=== PATIENT | female | born 1940 | race Caucasian/White ===

== ENCOUNTER 2017-07-02 10:46 | Emergency (ER) | payer OTHER, MEDICARE ==
[~2017-07-02] VITALS: Ht 157.5 cm; Wt 83.9 kg
[~2017-07-02 10:46] MED LIST: ARICEPT10 M1 PO; ARMOUR THYROID90 M1 PO; BELSOMRA10 MG PO; CALCIUM CARBON500 M2 PO; CITALOPRAM HBR20 MG PO; COLACE100 M1 PO; CYANOCOBAL1000 MCG/2 IM; GABAPENTIN300 M2 PO; JANTOVEN3 MG PO; LIPITOR20 M2 PO; LOVENOX80 MG/0.1 SC; METFORMIN HCL500 M3 PO; MORPHINE SULFAT30 M3 PO; OMEPRAZOLE20 M2 PO; RAMIPRIL2.5 M1 PO; VALIUM10 M1 PO; VITAMIN D32000 UNI1 PO; ZETIA10 M1 PO
--- NOTE | 2017-07-02 12:22 | ED UPPER/LOWER EXTREMITY COMPL ---
History of Present Illness General Chief Complaint: Lower Extremity Problems Stated Complaint: LFT LEG SWELLING Source: patient, old records Exam Limitations: no limitations Vital Signs & Intake/Output Vital Signs & Intake/Output Vital Signs Date Time Temp Pulse Resp B/P B/P Pulse O2 O2 Flow FiO2 Mean Ox Delivery Rate 07/02 1322 97.9 70 18 116/64 93 Room Air 07/02 1059 98.5 75 20 104/64 94 Room Air Allergies Coded Allergies: NO KNOWN ALLERGIES (01/24/16) Reconcile Medications Atorvastatin Calcium (Lipitor) 20 MG TABLET 1 TAB PO DAILY CHOLESTEROL ( Reported) Calcium Carbonate 500 MG CALCIUM (1,250 MG) TABLET 1 TAB PO BID SUPPLEMENT ( Reported) Cholecalciferol (Vitamin D3) (Vitamin D3) 2,000 UNIT TABLET 1 TAB PO DAILY SUPPLEMENT (Reported) Citalopram Hydrobromide (Citalopram HBr) 20 MG TABLET 1 TAB PO DAILY ANXIETY (Reported) Cyanocobalamin (Vitamin B-12) (Cyanocobalamin Injection) 1,000 MCG/ML VIAL 1 ML IM Q30D SUPPLEMENT (Reported) Diazepam (Valium) 10 MG TABLET 1 TAB PO QPM ANXIETY (Reported) Docusate Sodium (Colace) 100 MG CAPSULE 1 CAP PO DAILY STOOL SOFTENER ( Reported) Donepezil HCl (Aricept) 10 MG TABLET 1 TAB PO QPM MEMORY (Reported) Enoxaparin Sodium (Lovenox) 80 MG/0.8 ML SYRINGE 80 MG SC BID BLOOD CLOTS ( Reported) Ezetimibe (Zetia) 10 MG TABLET 1 TAB PO DAILY CHOLESTEROL (Reported) Gabapentin 300 MG CAPSULE 1 CAP PO QPM NEUROPATHY (Reported) Metformin HCl 500 MG TABLET 1 TAB PO BID DM (Reported) Morphine Sulfate (Morphine Sulfate ER) 30 MG TABLET.ER 1 TAB PO DAILY PAIN ( Reported) Omeprazole 20 MG CAPSULE.DR 1 CAP PO DAILY REFLUX (Reported) Ramipril 2.5 MG CAPSULE 1 CAP PO DAILY BP (Reported) Suvorexant (Belsomra) 10 MG TABLET 1 TAB PO QPM SLEEP (Reported) Thyroid,Pork ([place] Thyroid) 90 MG TABLET 1 TAB PO DAILY THYROID (Reported) Triage Note: STATES ON EASTER SHE WORE KNEE HIGH STOCKINGS AND WHEN SHE TOOK THEM OFF HER LEFT LEG AND ANKLE WAS VERY SWOLLEN. STATES THE SWELLING HASN'T GONE DOWN DESPITE ELEVATION. DR DUARTE SENT HER IN FOR U/S D/T HX OF CLOTS Triage Nurses Notes Reviewed? 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 Patient denies any fever chills chest pain shortness of breath DYSPNEA ON EXERTION, calf pain hemoptysis and is otherwise without complaints. Patient was advised to present to emergency room by primary care doctor for evaluation of left lower extremity DVT (Sky Rodríguez) Past History Travel History Traveled to [place] past 21 day No Medical History Any Pertinent Medical History? see below for history Cardiovascular: hyperlipidemia Respiratory: pulmonary embolism Gastrointestinal: GERD Endocrine: diabetes, hypothyroidism Surgical History Surgical History: non-contributory Psychosocial History Who do you live with Patient/Self Services at Home Nursing What is your primary language Surinamese Tobacco Use: Never used ETOH Use: denies use Illicit Drug Use: denies illicit drug use Family History Hx Contributory? No (Sky Rodríguez) Review of Systems Review of Systems Constitutional: Reports: no symptoms. EENTM: Reports: no symptoms. Respiratory: Reports: no symptoms. Cardiovascular: Reports: see HPI, peripheral edema. Denies: chest pain. Gastrointestinal/Abdominal: Reports: no symptoms. Genitourinary: Reports: no symptoms. Musculoskeletal: Reports: no symptoms. Skin: Reports: no symptoms. Neurological/Psychological: Reports: no symptoms. Hematologic/Endocrine: Reports: no symptoms. Immunological: Reports: no symptoms. All Other Systems: Reviewed and Negative (Sky Rodríguez) Physical Exam Physical Exam General Appearance: no apparent distress, alert, comfortable, obese Head: atraumatic Eyes: Bilateral: normal appearance. Ears, Nose, Throat: hearing grossly normal Neck: normal inspection Cardiovascular/Respiratory: normal breath sounds, normal peripheral pulses, regular rate/rhythm Peripheral Pulses: 2+ dorsalis pedis (L) Neurologic/Tendon: normal sensation, normal motor functions, normal tendon functions, responds to pain, no evidence tendon injury, no pulse deficit Skin: intact, normal color, warm/dry Diagram Legs Front/Back 1) Mild nonpitting edema to left lower extremity below the knee pedal pulses + 2 dermatomes intact no signs of erythema (Sky Rodríguez) Progress Differential Diagnosis: arterial insufficiency, cellulitis, CHF, compartment syndrome, contusion, dislocation, DVT, fracture, septic arthritis, sprain, tendon injury Plan of Care: Orders Procedure Date/time Status US-UNILATERAL VENOUS DOPPLER 07/02 1128 Active Ultrasound was negative for concerns of DVT to left lower extremity, patient denies any cardiovascular or respiratory complaints no concerns at this time of PE. MELE WRAP was placed to left lower extremity pre-and post-neurovascular was intact Discussed results with patient was aware and has no questions upon discharge Diagnostic Imaging: Viewed by Me: Ultrasound. Radiology Impression: no acute abnormality Comments: PATIENT: JOANNA MCNAMARA PRESENT AGE: 76 PATIENT ACCOUNT NO: [id number] : 38 LOCATION: [facility] ORDERING PHYSICIAN: Sky CHAN SERVICE DATE: 07/02/17-1128 EXAM TYPE: US - US-UNILATERAL VENOUS DOPPLER EXAMINATION: US TRIPLEX LOWER EXTREMITY, LEFT CLINICAL INFORMATION: Left leg swelling and pain COMPARISON: None available TECHNIQUE: Color-flow triplex imaging with spectral analysis and compression Doppler were performed on the left lower extremity. FINDINGS: Respiratory variation, normal compression and augmented flow are noted throughout the left lower extremity. The visualized common femoral vein, superficial femoral vein, profunda femoral vein, and popliteal vein show no evidence of deep venous thrombosis. The left calf veins are not well assessed secondary to soft tissue edema within the calf. There is no Tran's cyst. IMPRESSION: There is no evidence of deep venous thrombosis involving the left lower extremity. The left calf veins are not well assessed secondary to soft tissue edema within the calf. DICTATED BY: Robin Root MD DATE/TIME DICTATED:07/02/171308 BASE ENGINEER:ISHAAN DATE/TIME TRANSCRIBED:07/02/171308 CONFIDENTIAL, DO NOT COPY WITHOUT APPROPRIATE AUTHORIZATION. <Electronically signed in Other Vendor System> SIGNED BY: Robin Root MD 07/02/17 7704 (Sky Rodríguez) Departure Departure Disposition: HOME OR SELF CARE Condition: Stable Clinical Impression Primary Impression: Left leg swelling Referrals: Catrina GONSALEZ,Sharon Lisa (PCP/Family) Additional Instructions: As discussed begin to elevate the foot for swelling, begin use THE Mele wrap provided to YOU IN the emergency room for swelling if symptoms worsen or if YOU develop new concerning symptom return to emergency room, follow-up with her doctor in 2 days if no better Departure Forms: Customer Survey General Discharge Information (Sky Rodríguez) PA/SEO ASSOCIATE Co-Sign Statement Statement: ED Attending supervision documentation- [x] I saw and evaluated the patient. I have also reviewed all the pertinent lab results and diagnostic results. I agree with the findings and the plan of care as documented in the PA's/SEO ASSOCIATE's documentation. Patient presents for evaluation of left lower extremity swelling. Patient was seen in a walk-in center yesterday but a Doppler was only available. She presents today for evaluation of the leg swelling. Physical examination reveals 2+ pitting edema of the left lower extremity and 1+ pitting edema of the right lower extremity. No signs of cellulitis. [] I have reviewed the ED Record and agree with the PA's/SEO ASSOCIATE's documentation. [] Additions or exceptions (if any) to the PAs/SEO ASSOCIATE's note and plan are summarized below: [] (Loren GONSALEZ,Robin Lisa)
--- NOTE | 2017-07-02 13:14 | ULTRASOUND REPORT ---
EXAMINATION: US TRIPLEX LOWER EXTREMITY, LEFT CLINICAL INFORMATION: Left leg swelling and pain COMPARISON: None available TECHNIQUE: Color-flow triplex imaging with spectral analysis and compression Doppler were performed on the left lower extremity. FINDINGS: Respiratory variation, normal compression and augmented flow are noted throughout the left lower extremity. The visualized common femoral vein, superficial femoral vein, profunda femoral vein, and popliteal vein show no evidence of deep venous thrombosis. The left calf veins are not well assessed secondary to soft tissue edema within the calf. There is no Tran's cyst. IMPRESSION: There is no evidence of deep venous thrombosis involving the left lower extremity. The left calf veins are not well assessed secondary to soft tissue edema within the calf.
[2017-07-02 13:22] VITALS: BP 116/64
== END 2017-07-02 14:43 ==
LOC: ERH 10:46
DX: M79.89 Other specified soft tissue disorders (principal)